=== PATIENT | male | born 1995 | race Caucasian/White ===

== ENCOUNTER 2020-10-04 11:47 | Emergency (ER) | payer OTHER ==
[~2020-10-04] VITALS: Ht 180.3 cm; Wt 77.1 kg
[2020-10-04 12:43] VITALS: BP 124/70
--- NOTE | 2020-10-05 10:04 | EKG ---
[place] [address] ELECTROCARDIOGRAM REPORT Name: REYNALDO SHORT Room: [facility]#: [id number] Admission: 10/04/20 Attend Phys: Discharge: 10/04/20 Date of : [birth year] Date of Service: 10/04/20 1152 Report #: [id number] THIS REPORT FOR: //name// [facility] ED Test Date: 2020-10-04 Test Time: 11:52:50 Pat Name: REYNALDO SHORT Department: Room: Gender: Control Technician: : 1995 Requested By: Tom Segura Order Number: [id number] MD: Fili Reveles Measurements Intervals [place] Rate: 81 P: 41 IN: 100 QRS: 55 QRSD: 122 T: 62 QT: 356 QTc: 414 Interpretive Statements Sinus rhythm Short IN interval Right bundle branch block No previous ECG available for comparison Electronically Signed On 10-05-2020 10:04:05 CDT by Fili Reveles [email or web address] <ELECTRONICALLY SIGNED> By: Fili Reveles MD, [facility] 10/05/20 1004 115 115 Fili Reveles MD, [facility] /EPI
== END 2020-10-04 12:44 | disposition home or self-care (01) ==
LOC: M.ERS 11:47
DX: R07.89 Other chest pain (principal); F17.210 Nicotine dependence, cigarettes, uncomplicated